=== PATIENT | female | born 1995 | race Caucasian/White ===

== ENCOUNTER 2016-08-05 10:18 | Emergency (ER) | payer OTHER ==
[2016-08-05 11:43] VITALS: BP 119/70
[2016-08-05] MEDS ORDERED: Ketorolac INJ* 30 MG/ML 1 ML VIAL IV PUSH ONE (12:00)
[2016-08-05] MEDS ORDERED: diPHENhydraMINE IV* 50 MG/ML 1 ml VIAL (BENADRYL) SLOW PUSH ONE (12:00)
[2016-08-05] MEDS ORDERED: Ondansetron INJ* 2 MG/ML VIAL IV ONE (12:00)
[2016-08-05] MEDS ORDERED: NS 0.9% 1000 ML* 1,000 ML BOLUS ONE ×2 (12:03→13:06)
--- NOTE | 2016-08-05 12:12 | UC ---
HPI Febrile Illness - HPI Summary HPI Summary: Cough and tickle in throat starting 2 days ago with chills and fever. Yesterday developed nausea and today vomiting without ability to keep anything down. Reports no BMs in 2-3 days and rare urination because "I'm not really eating or drinking anything." Needs note for school. - History of Current Complaint Chief Complaint: UCGeneralIllness Time Seen by Provider: 08/05/16 11:45 Hx Obtained From: Patient Onset/Duration: Started Days Ago Timing: Constant Initial Severity: Moderate Current Severity: Moderate Aggravating Factors: Nothing Alleviating Factors: OTC Medicine Associated Signs and Symptoms: Chills, Cough, Nausea, Vomiting - Allergy/Home Medications Allergies/Adverse Reactions: Allergies Allergy/AdvReac Type Severity Reaction Status Date / Time No Known Allergies Allergy Verified 05/16/16 16:44 PMH/Surg Hx/FS Hx/Imm Hx Previously Healthy: Yes Endocrine/Hematology History: Denies: Hx Diabetes, Hx Thyroid Disease Cardiovascular History: Denies: Hx Hypertension Respiratory History: Denies: Hx Asthma, Hx Chronic Obstructive Pulmonary Disease (COPD) GI History: Denies: Hx Ulcer Psychiatric History: Reports: Hx Anxiety - years hx , no treatment - Cancer History Hx Radiation Therapy: No Hx Palliative Cancer Treatment: No - Surgical History Surgery Procedure, Year, and Place: LASER SURGERY FOR REMOVAL OF [place] Infectious Disease History: No Infectious Disease History: Denies: Hx Hepatitis, Hx Human Immunodeficiency Virus (HIV), Traveled Outside the [place] in Last 30 Days - Family History Known Family History: Positive: Hypertension - Social History Occupation: Student Lives: Alone Alcohol Use: None Substance Use Type: Reports: None Smoking Status (MU): Never Smoked Tobacco Review of Systems Constitutional: Fever, Chills Skin: Negative Eyes: Negative ENT: Sore Throat Respiratory: Cough Cardiovascular: Negative Gastrointestinal: Abdominal Pain, Vomiting Genitourinary: Negative Motor: Negative Neurovascular: Negative Musculoskeletal: Negative Neurological: Negative Psychological: Negative All Other Systems Reviewed And Are Negative: Yes Physical Exam Triage Information Reviewed: Yes Appearance: Well-Nourished, Pain Distress - mild, lying in bed Vital Signs: Initial Vital Signs Temp 101.5 F 08/05/16 11:39 Pulse 124 08/05/16 11:39 Resp 18 08/05/16 11:39 BP 119/70 08/05/16 11:39 Pulse Ox 99 08/05/16 11:39 Vital Signs Reviewed: Yes Eye Exam: Normal Eyes: Positive: Conjunctiva Clear ENT: Positive: Hearing grossly normal, Pharyngeal erythema - slight, TMs normal , Other: - mild dryness in mucus membranes. Negative: Nasal congestion, Tonsillar swelling, Tonsillar exudate Dental Exam: Normal Neck exam: Normal Neck: Positive: Supple, Nontender, No Lymphadenopathy Respiratory Exam: Normal Respiratory: Positive: Chest non-tender, Lungs clear, Normal breath sounds, No respiratory distress, No accessory muscle use Cardiovascular: Positive: No Murmur, Tachycardia Abdomen Description: Positive: No Organomegaly, Soft, Other: - obdurator and psoas signs both negative. Negative: CVA Tenderness (R), CVA Tenderness (L), Distended, Guarding Musculoskeletal Exam: Normal Neurological Exam: Normal Psychological Exam: Normal Skin Exam: Normal - WWP Re-Evaluation - Re-Evaluation Second Eval Re-Evaluation Time: 13:35 Change: Improved - feeling a little better, still doesn't feel like she could keep down fluids. Comment: Pt is feeling tired, feels ok to go home after 2nd bag of IV fluids Course/Dx - Course Course Of Treatment: flu was positive for flu A. Discussed tamiflu with pt, did not recommend rx because pt is almost out of effective window, pt is young and healthy, and GI side effects would likely exacerbate current symptoms. Pt agrees and understands she should get seen again if fever persists longer than 5 days or has trouble breathing. - Diagnoses Clinic Provider Diagnoses: Influenza Discharge - Discharge Plan Condition: Stable Disposition: HOME Prescriptions: Ondansetron TAB* [Zofran Tab*] 4 mg PO Q6H PRN #10 tab PRN Reason: Vomiting Patient Education Materials: Influenza (ED) Forms: *School Release Referrals: No Primary Care Phys,NOPCP [Primary Care Provider] - Additional Instructions: You can treat your fever as needed for comfort; acetaminophen (tylenol) may be better if you continue to have stomach upset. There is nothing inherently dangerous about running a fever, so do not worry if it takes your temperature another few days to fully normalize. If you have fevers over 100.5 after 5 days , please return here for a recheck. Come back at any time if you have difficulty breathing or uncontrollable vomiting.
== END 2016-08-05 14:01 | disposition home or self-care (01) ==
LOC: UCEAST 10:18
DX: J11.1 Influenza due to unidentified influenza virus with other respiratory manifestations (principal); R50.9 Fever, unspecified
CPT/HCPCS: 81002; 87086; 87502; 96361; 96365; 96375; 99212; G0463; J1200; J1885; J2405

== ENCOUNTER 2016-11-14 14:21 | Emergency (ER) | payer OTHER ==
[2016-11-14 14:41] VITALS: BP 116/52
--- NOTE | 2016-11-14 15:03 | UC ---
Throat Pain/Nasal Declan HPI - HPI Summary HPI Summary: Seen here 11/11/[address] with multiple complains (n/v/dehydration/urinary frequency). Has been taking abx for UTI, now ST is much worse and is still feeling quite ill. - History of Current Complaint Chief Complaint: UCGeneralIllness Stated Complaint: SORE THROAT Time Seen by Provider: 11/14/16 14:49 Hx Obtained From: Patient Hx Last Menstrual Period: 11/07/16 ?: No Onset/Duration: Gradual Onset, Lasting Days Severity: Moderate Cough: None - Allergies/Home Medications Allergies/Adverse Reactions: Allergies Allergy/AdvReac Type Severity Reaction Status Date / Time No Known Allergies Allergy Verified 11/11/16 13:55 PMH/Surg Hx/FS Hx/Imm Hx Endocrine History Of: Denies: Diabetes, Thyroid Disease Cardiovascular History Of: Denies: Cardiac Disorders, Hypertension Respiratory History Of: Denies: COPD, Asthma GI/ History Of: Denies: Ulcer Psychological History Of: Reports: Anxiety - years hx , no treatment - Surgical History Surgical History: Yes Surgery Procedure, Year, and Place: LASER SURGERY FOR REMOVAL OF [place] - Family History Known Family History: Positive: None, Hypertension - Social History Lives: Alone Alcohol Use: None Substance Use Type: None Smoking Status (MU): Never Smoked Tobacco - Immunization History Most Recent Tetanus Shot: 2014 Review of Systems Constitutional: Fever, Fatigue Skin: Negative Eyes: Negative ENT: Sore Throat Respiratory: Negative Cardiovascular: Negative Gastrointestinal: Vomiting Genitourinary: Negative Motor: Negative Neurovascular: Negative Musculoskeletal: Negative Neurological: Negative Psychological: Negative All Other Systems Reviewed And Are Negative: Yes Physical Exam Triage Information Reviewed: Yes Appearance: Well-Appearing, Well-Nourished Vital Signs: Initial Vital Signs Temp 98.5 F 11/14/16 14:34 Pulse 77 11/14/16 14:34 Resp 16 11/14/16 14:34 BP 116/52 11/14/16 14:34 Pulse Ox 100 11/14/16 14:34 Vital Signs Reviewed: Yes Eye Exam: Normal Eyes: Positive: Conjunctiva Clear ENT: Positive: Pharyngeal erythema, TMs normal, Tonsillar swelling, Tonsillar exudate - R>L Dental Exam: Normal Neck: Positive: Enlarged Nodes @ - cervical Respiratory Exam: Normal Respiratory: Positive: Chest non-tender, Lungs clear, Normal breath sounds, No respiratory distress, No accessory muscle use Cardiovascular Exam: Normal Cardiovascular: Positive: RRR, No Murmur Musculoskeletal Exam: Normal Neurological Exam: Normal Psychological Exam: Normal Skin Exam: Normal Throat Pain/Nasal Course/Dx - Differential Dx/Diagnosis Provider Diagnoses: tonsillitis, suspect mononucleosis Discharge - Discharge Plan Condition: Stable Disposition: HOME Patient Education Materials: Tonsillitis (ED), Mononucleosis (ED) Forms: *Work Release Referrals: No Primary Care Phys,NOPCP [Primary Care Provider] - Additional Instructions: Rapid strep negative. Your original bloodwork did not show acute mononucleosis, but as we discussed it is too early for accurate negative results. If you still have significant symptoms in another week or so, please see your primary care provider or return here for a second round of bloodwork. You can stop the cephalexin (your urine culture did not show any infection).
== END 2016-11-14 15:29 | disposition home or self-care (01) ==
LOC: UCEAST 14:21
DX: J03.90 Acute tonsillitis, unspecified (principal); F41.9 Anxiety disorder, unspecified
CPT/HCPCS: 99211; G0463

== ENCOUNTER 2017-08-10 18:49 | Emergency (ER) | payer OTHER ==
[2017-08-10] MEDS ORDERED: Ondansetron INJ* 2 MG/ML VIAL IV ONE (19:23)
[2017-08-10] MEDS ORDERED: NS 0.9% 1000 ML* 1,000 ML IV ONE (19:23)
[2017-08-10 19:41] LABS: ABS Basophils 0 10^3/ul (0-0.2); ABS Eosinophils 0.1 10^3/ul (0-0.6); ABS Lymphocytes 1.9 10^3/ul (1.0-4.8); ABS Monocytes 0.6 10^3/ul (0-0.8); ABS Neutrophils 2.5 10^3/ul (1.5-7.7); ABS Nucleated RBC 0 10^3/ul; Eosinophil % 1.7 % (0-6); Hematocrit 41 % (35-47); Hemoglobin 14.1 g/dl (12.0-16.0); Lymphocyte % 36.9 % (25-47); Mean Corpuscular HGB Conc 35 g/dl (31-36); Mean Corpuscular Hemoglobin 31 pg (27-31); Mean Corpuscular Volume 89 fL (80-97); Mean Platelet Volume 9 um3 (7.4-10.4); Nucleated Red Blood Cells % 0.1; Platelet Count 196 10^3/ul (150-450); Red Cell Distribution Width 13 % (10.5-15); White Blood Count 5.1 10^3/ul (3.5-10.8)
[2017-08-10 19:53] LABS: EGFR Non-African American 64.7 (>60)
[2017-08-10] MEDS ORDERED: Pantoprazole IV* 40 MG IV ONE (20:02)
[2017-08-10 21:21] LABS: Urine Appearance Clear; Urine Blood 1+ (Negative); Urine Color Straw; Urine Ketones Negative (Negative); Urine Protein Negative (Negative); Urine Specific Gravity 1.006 (1.010-1.030); Urine Urobilinogen Negative (Negative)
[2017-08-10 21:30] VITALS: BP 111/55
--- NOTE | 2017-08-10 21:38 | ED ---
Israel Jackson Julia, scribed for Sohan Granger MD on 08/10/17 at 1924 . Abdominal Pain/Female - HPI Summary HPI Summary: This patient is a 21 year old F presenting to [facility] accompanied by her father with a chief complaint of L flank pain for past 24 hours. Patient reports nausea , vomiting (x3) this week, and burning epigastrium pain and indigestion for past year. Patient denies pain with urination, fever, chills, bowel symptoms, and hematemesis. The patient rates the pain 5/10 in severity. She reports rare and minimal use of ASA. She states previous stool testing was negative for blood. She has a GI appointment in September 2017. - History of Current Complaint Chief Complaint: EDAbdPain Stated Complaint: ABD PAIN/BACK PAIN Hx Obtained From: Patient Hx Last Menstrual Period: 11/07/16 Onset/Duration: Lasting Hours, Still Present, Other - chronic nausea and indigestoin Timing: Constant Pain Intensity: 5 Pain Scale Used: 0-10 Numeric Location: Epigastric, Flank - L and low back Associated Signs and Symptoms: Positive: Back Pain, Decreased Appetite, Nausea, Vomiting Allergies/Adverse Reactions: Allergies Allergy/AdvReac Type Severity Reaction Status Date / Time No Known Allergies Allergy Verified 08/10/17 19:11 PMH/Surg Hx/FS Hx/Imm Hx Endocrine/Hematology History: Denies: Hx Diabetes, Hx Thyroid Disease Cardiovascular History: Denies: Hx Hypertension Respiratory History: Denies: Hx Asthma, Hx Chronic Obstructive Pulmonary Disease (COPD) GI History: Denies: Hx Ulcer Psychiatric History: Reports: Hx Anxiety - years hx , no treatment - Cancer History Hx Radiation Therapy: No Hx Palliative Cancer Treatment: No - Surgical History Surgery Procedure, Year, and Place: LASER SURGERY FOR REMOVAL OF [place] Infectious Disease History: No Infectious Disease History: Denies: Hx Clostridium Difficile, Hx Hepatitis, Hx Human Immunodeficiency Virus (HIV), Hx of Known/Suspected MRSA, Hx Shingles, Hx Tuberculosis, Hx Known/ Suspected VRE, Hx Known/Suspected VRSA, History Other Infectious Disease, Traveled Outside the [place] in Last 30 Days - Family History Known Family History: Positive: Hypertension - Social History Alcohol Use: None Substance Use Type: Reports: None Smoking Status (MU): Never Smoked Tobacco Review of Systems Constitutional: Negative Negative: Fever, Chills Eyes: Negative Positive: Photophobia ENT: Negative Cardiovascular: Negative Respiratory: Negative Gastrointestinal: Negative - bowel symptoms or hematemesis Positive: Abdominal Pain, Vomiting, Nausea Positive: no symptoms reported Musculoskeletal: Negative Skin: Negative Neurological: Negative Psychological: Normal All Other Systems Reviewed And Are Negative: Yes Physical Exam - Summary Physical Exam Summary: Appearance: Well-appearing, Well-nourished Skin: Warm, Dry, No rash Eyes: Normal, PERRL, EOMI, sclera anicteric ENT: Normal Neck: Supple, nontender Respiratory: Clear to auscultation Cardiovascular: S1, S2, no murmur, no rub, no gallop Abdomen: Soft, mid epigastric tenderness, no organomegaly Bowel sounds: Present Musculoskeletal: Normal, Strength/ROM Intact, no edema, pulses symmetrical Neurological: Normal, A&Ox3, cranial nerves II-XII WNL, follows commands, gait not tested, sensation intact to pin and light touch Psychiatric: affect normal, behavior appropriate, dressed appropriately, judgment intact Triage Information Reviewed: Yes Vital Signs On Initial Exam: Initial Vitals Temp Pulse Resp BP Pulse Ox 98.7 F 89 16 115/59 98 08/10/17 19:08 08/10/17 19:08 08/10/17 19:08 08/10/17 19:08 08/10/17 19:08 Vital Signs Reviewed: Yes Diagnostics - Vital Signs Vital Signs Temp Pulse Resp BP Pulse Ox 08/10/17 19:08 98.7 F 89 16 115/59 98 - Laboratory Lab Results: Lab Results 08/10/17 08/10/17 08/10/17 Range/Units 19:27 19:27 21:09 WBC 5.1 (3.5-10.8) 10^3/ul RBC 4.60 (4.0-5.4) 10^6/ul Hgb 14.1 (12.0-16.0) g/dl Hct 41 (35-47) % MCV 89 (80-97) fL MCH 31 (27-31) pg MCHC 35 (31-36) g/dl RDW 13 (10.5-15) % Plt Count 196 (150-450) 10^3/ul MPV 9 (7.4-10.4) um3 Neut % (Auto) 49.3 (38-83) % Lymph % (Auto) 36.9 (25-47) % [place] % (Auto) 11.5 H (1-9) % Eos % (Auto) 1.7 (0-6) % Baso % (Auto) 0.6 (0-2) % Absolute Neuts (auto) 2.5 (1.5-7.7) 10^3/ul Absolute Lymphs (auto) 1.9 (1.0-4.8) 10^3/ul Absolute Monos (auto) 0.6 (0-0.8) 10^3/ul Absolute Eos (auto) 0.1 (0-0.6) 10^3/ul Absolute Basos (auto) 0 (0-0.2) 10^3/ul Absolute Nucleated RBC 0 10^3/ul Nucleated RBC % 0.1 Sodium 140 (133-145) mmol/L Potassium 4.3 (3.5-5.0) mmol/L Chloride 106 (101-111) mmol/L Carbon Dioxide 27 (22-32) mmol/L Anion Gap 7 (2-11) mmol/L BUN 11 (6-24) mg/dL Creatinine 1.08 H (0.51-0.95) mg/dL Est GFR ( Amer) 83.2 (>60) Est GFR (Non-Af Amer) 64.7 (>60) BUN/Creatinine Ratio 10.2 (8-20) Glucose 91 (70-100) mg/dL Calcium 10.0 (8.6-10.3) mg/dL Total Bilirubin 0.50 (0.2-1.0) mg/dL AST 13 (13-39) U/L ALT 9 (7-52) U/L Alkaline Phosphatase 40 (34-104) U/L Total Protein 7.6 (6.4-8.9) g/dL Albumin 4.8 (3.2-5.2) g/dL Globulin 2.8 (2-4) g/dL Albumin/Globulin Ratio 1.7 (1-3) Lipase 33 (11.0-82.0) U/L Urine Color Straw Urine Appearance Clear Urine pH 7.0 (5-9) Ur Specific Stella 1.006 L (1.010-1.030) Urine Protein Negative (Negative) Urine Ketones Negative (Negative) Urine Blood 1+ H (Negative) Urine Nitrate Negative (Negative) Urine Bilirubin Negative (Negative) Urine Urobilinogen Negative (Negative) Ur Leukocyte Esterase Negative (Negative) Urine WBC (Auto) Trace(0-5/hpf) (Absent) Urine RBC (Auto) Absent (Absent) Ur Squamous Epith Cells Present H (Absent) Urine Bacteria Absent (Absent) Urine Glucose Negative (Negative) Result Diagrams: 08/10/17 19:27 08/10/17 19:27 Lab Statement: Any lab studies that have been ordered have been reviewed, and results considered in the medical decision making process. Abdominal Pain Fem Course/Dx - Course Course Of Treatment: Pt presents with nausea, vomiting (x3) this week, and burning epigastrium pain and indigestion for past year. Patient denies pain with urination, fever, chills, bowel symptoms, and hematemesis. Lab results are unremarkable. Pt is given Zofran, Protonix, and Iv fluids. - Diagnoses Provider Diagnoses: Gastritis Discharge - Discharge Plan Condition: Good Disposition: HOME Prescriptions: Ondansetron TAB* [Zofran 4 MG Tab*] 4 mg PO Q6H PRN 6 Days #25 tab MDD 4 PRN Reason: Nausea Pantoprazole TAB (NF) [Protonix TAB (NF)] 40 mg PO DAILY #30 tab Patient Education Materials: Gastritis (ED) Referrals: Mohit Lancaster MD [Primary Care Provider] - The documentation as recorded by the Israel cedillo Julia accurately reflects the service I personally performed and the decisions made by Bárbara henderson Matthew, MD.
== END 2017-08-10 21:35 | disposition home or self-care (01) ==
LOC: ED 18:49
DX: K29.70 Gastritis, unspecified, without bleeding (principal)
CPT/HCPCS: 36415; 80053; 81003; 81015; 83690; 85025; 96374; 96375; 99283; J2405

== ENCOUNTER 2017-08-15 16:13 | Emergency (ER) | payer OTHER ==
[2017-08-15 18:11] LABS: ABS Basophils 0 10^3/ul (0-0.2); ABS Eosinophils 0 10^3/ul (0-0.6); ABS Lymphocytes 1.7 10^3/ul (1.0-4.8); ABS Monocytes 0.4 10^3/ul (0-0.8); ABS Neutrophils 3.4 10^3/ul (1.5-7.7); ABS Nucleated RBC 0 10^3/ul; Eosinophil % 0.8 % (0-6); Hematocrit 41 % (35-47); Lymphocyte % 29.9 % (25-47); Mean Corpuscular HGB Conc 34 g/dl (31-36); Mean Corpuscular Hemoglobin 31 pg (27-31); Mean Corpuscular Volume 89 fL (80-97); Mean Platelet Volume 9 um3 (7.4-10.4); Nucleated Red Blood Cells % 0.1; Platelet Count 195 10^3/ul (150-450); Red Blood Count 4.57 10^6/ul (4.0-5.4); Red Cell Distribution Width 13 % (10.5-15); White Blood Count 5.5 10^3/ul (3.5-10.8)
[2017-08-15 18:27] LABS: EGFR Non-African American 76.9 (>60)
[2017-08-15] MEDS ORDERED: Sucralfate TAB* 1 GM PO ONE ×2 (20:43→21:55)
[2017-08-15] MEDS ORDERED: Sucralfate TAB* 1 GM ONE (21:58)
[2017-08-15 22:09] VITALS: BP 116/50
--- NOTE | 2017-08-15 22:21 | ED ---
Alok Jackson Jennifer, scribed for Lyle Gonzalez MD on 08/15/17 at 2051 . Abdominal Pain/Female - HPI Summary HPI Summary: The patient is a 21 year old female who presents to the ED with abdominal pain that began six days ago. She describes it as a burning pain that radiates to her back. She additionally complains of nausea and vomiting that began one month ago, as well as heart burn. Her PCP referred her to a GI specialist, but they cant see her until September 01, so she came to the ED for her pain. - History of Current Complaint Chief Complaint: EDAbdPain Stated Complaint: ABD AND BACK PAIN Time Seen by Provider: 08/15/17 20:15 Hx Obtained From: Patient Hx Last Menstrual Period: 11/07/16 Onset/Duration: Lasting Days - six days, Still Present, Worse Since Timing: Constant Severity Initially: Moderate Severity Currently: Moderate Pain Intensity: 7 Pain Scale Used: 0-10 Numeric Location: Discrete At: LUQ, Epigastric Radiates: Yes Radiates to: Back Character: Burning Aggravating Factor(s): Nothing Alleviating Factor(s): Nothing Associated Signs and Symptoms: Positive: Other: - Nausea, vomiting, heart burn Allergies/Adverse Reactions: Allergies Allergy/AdvReac Type Severity Reaction Status Date / Time No Known Allergies Allergy Verified 08/10/17 19:11 PMH/Surg Hx/FS Hx/Imm Hx Endocrine/Hematology History: Denies: Hx Diabetes, Hx Thyroid Disease Cardiovascular History: Denies: Hx Hypertension Respiratory History: Denies: Hx Asthma, Hx Chronic Obstructive Pulmonary Disease (COPD) GI History: Denies: Hx Ulcer Psychiatric History: Reports: Hx Anxiety - years hx , no treatment - Cancer History Hx Radiation Therapy: No Hx Palliative Cancer Treatment: No - Surgical History Surgery Procedure, Year, and Place: LASER SURGERY FOR REMOVAL OF [place] Infectious Disease History: No Infectious Disease History: Denies: Hx Clostridium Difficile, Hx Hepatitis, Hx Human Immunodeficiency Virus (HIV), Hx of Known/Suspected MRSA, Hx Shingles, Hx Tuberculosis, Hx Known/ Suspected VRE, Hx Known/Suspected VRSA, History Other Infectious Disease, Traveled Outside the [place] in Last 30 Days - Family History Known Family History: Positive: Hypertension - Social History Alcohol Use: None Substance Use Type: Reports: None Smoking Status (MU): Never Smoked Tobacco Review of Systems Negative: Fever Positive: Abdominal Pain, Vomiting, Nausea, Other - Heart burn All Other Systems Reviewed And Are Negative: Yes Physical Exam - Summary Physical Exam Summary: Appearance: The patient is well-nourished in no acute distress and in no acute pain. Skin: The skin is warm and dry and skin color reflects adequate perfusion. HEENT: ~The head is normocephalic and atraumatic. The pupils are equal and reactive. The conjunctivae are clear and without drainage. ~Nares are patent and without drainage. ~Mouth reveals moist mucous membranes and the throat is without erythema and exudate. ~The external ears are intact. The ear canals are patent and without drainage. The tympanic membranes are intact. Neck: the neck is supple with full range of motion and non-tender. There are no carotid bruits. ~There is no neck vein distension. Respiratory: Chest is non-tender. ~Lungs are clear to auscultation and breath sounds are symmetrical and equal. Cardiovascular: Heart is regular rate and rhythm. ~There is no murmur or rub auscultated. ~~There is no peripheral edema and pulses are symmetrical and equal. Abdomen: The abdomen is soft and tender in the epigastric and LUQ areas. ~There are normal bowel sounds heard in all four quadrants and there is no organomegaly palpated. Musculoskeletal: There is no back tenderness noted. ~Extremities are non-tender with full range of motion. ~There is good capillary refill. ~There is no peripheral edema or calf tenderness elicited. Neurological: Patient is alert and oriented to person, place and time. ~The patient has symmetrical motor strength in all four extremities. ~Cranial nerves are grossly intact. Deep tendon reflexes are symmetrical and equal in all four extremities. Psychiatric: The patient has an appropriate affect and does not exhibit any anxiety or depression. Triage Information Reviewed: Yes Vital Signs On Initial Exam: Initial Vitals Temp Pulse Resp BP Pulse Ox 97.8 F 85 16 132/86 100 08/15/17 16:16 08/15/17 16:16 08/15/17 16:16 08/15/17 16:16 08/15/17 16:16 Vital Signs Reviewed: Yes Diagnostics - Vital Signs Vital Signs Temp Pulse Resp BP Pulse Ox 08/15/17 19:55 98.2 F 62 121/56 100 08/15/17 18:22 98.5 F 50 16 118/54 97 08/15/17 16:16 97.8 F 85 16 132/86 100 - Laboratory Lab Results: Lab Results 08/15/17 08/15/17 Range/Units 18:00 18:00 WBC 5.5 (3.5-10.8) 10^3/ul RBC 4.57 (4.0-5.4) 10^6/ul Hgb 14.0 (12.0-16.0) g/dl Hct 41 (35-47) % MCV 89 (80-97) fL MCH 31 (27-31) pg MCHC 34 (31-36) g/dl RDW 13 (10.5-15) % Plt Count 195 (150-450) 10^3/ul MPV 9 (7.4-10.4) um3 Neut % (Auto) 62.2 (38-83) % Lymph % (Auto) 29.9 (25-47) % [place] % (Auto) 6.7 (1-9) % Eos % (Auto) 0.8 (0-6) % Baso % (Auto) 0.4 (0-2) % Absolute Neuts (auto) 3.4 (1.5-7.7) 10^3/ul Absolute Lymphs (auto) 1.7 (1.0-4.8) 10^3/ul Absolute Monos (auto) 0.4 (0-0.8) 10^3/ul Absolute Eos (auto) 0 (0-0.6) 10^3/ul Absolute Basos (auto) 0 (0-0.2) 10^3/ul Absolute Nucleated RBC 0 10^3/ul Nucleated RBC % 0.1 Sodium 136 (133-145) mmol/L Potassium 4.1 (3.5-5.0) mmol/L Chloride 105 (101-111) mmol/L Carbon Dioxide 25 (22-32) mmol/L Anion Gap 6 (2-11) mmol/L BUN 11 (6-24) mg/dL Creatinine 0.93 (0.51-0.95) mg/dL Est GFR ( Amer) 98.8 (>60) Est GFR (Non-Af Amer) 76.9 (>60) BUN/Creatinine Ratio 11.8 (8-20) Glucose 77 (70-100) mg/dL Calcium 10.4 H (8.6-10.3) mg/dL Total Bilirubin 0.80 (0.2-1.0) mg/dL AST 28 (13-39) U/L ALT 35 (7-52) U/L Alkaline Phosphatase 48 (34-104) U/L C-Reactive Protein 1.19 (< 5.00) mg/L Total Protein 7.8 (6.4-8.9) g/dL Albumin 4.9 (3.2-5.2) g/dL Globulin 2.9 (2-4) g/dL Albumin/Globulin Ratio 1.7 (1-3) Result Diagrams: 08/15/17 18:00 08/15/17 18:00 Lab Statement: Any lab studies that have been ordered have been reviewed, and results considered in the medical decision making process. Abdominal Pain Fem Course/Dx - Course Course Of Treatment: Ms. Sunshine presented with the same epigastric pain for which she has been seen and treated and is referred for further W/U. Her labs were unremarkable and she did get some relief with sucralfate. I will add this to her regimen and encourage close GI F/U. - Diagnoses Provider Diagnoses: Epigastric pain Discharge - Discharge Plan Condition: Stable Disposition: HOME Prescriptions: Sucralfate TAB* [Carafate*] 1 gm PO QID #40 tab Patient Education Materials: Epigastric Pain (ED) Referrals: Mohit Lancaster MD [Primary Care Provider] - Additional Instructions: Follow up with your GI doctor. Return to the emergency department for any new or worsening symptoms. The documentation as recorded by the Alok cedillo Jennifer accurately reflects the service I personally performed and the decisions made by , Lyle Gonzalez MD.
== END 2017-08-15 22:10 | disposition home or self-care (01) ==
LOC: ED 16:13
DX: R10.13 Epigastric pain (principal); R10.12 Left upper quadrant pain; R11.2 Nausea with vomiting, unspecified; F41.9 Anxiety disorder, unspecified
CPT/HCPCS: 36415; 80053; 85025; 86140; 99283; A9270-GY

== ENCOUNTER 2017-10-13 10:55 | Emergency (ER) | payer OTHER ==
[2017-10-13 11:02] VITALS: BP 102/60
--- NOTE | 2017-10-13 11:05 | UC ---
FLU HPI - HPI Summary HPI Summary: 22 y/o female presents to the urgent care c/o sore throat, body aches, low grade fever, BENNETT and mild nasal congestion for the past 3 days. Pt reports she has been exposed to strep. Pain w/ swallowing is 5/10 associated w. B/L ear pressure. Pt has taken Advil PO to alleviate symptoms. Pt is UTD w/ all vaccines for her age. Pt denies cough, SOB, chest pain, abdominal pain, N/V/D - History of Current Complaint Chief Complaint: UCGeneralIllness Stated Complaint: SORE THROAT,BODYACHES Time Seen by Provider: 10/13/17 11:04 Hx Obtained From: Patient Hx Last Menstrual Period: 09/16/17 ?: No Onset/Duration: Gradual Onset, Lasting Days - 3 days, Still Present, Worse Since - yesterday Severity Currently: Mild Severity Initially: Moderate Pain Intensity: 5 Pain Scale Used: 0-10 Numeric Associated Signs & Symptoms: Positive: Fever - low grade, Myalgia, Sore Throat, Nasal Congestion, Headache - Risk Factors Influenza Risk Factors: Negative - Allergy/Home Medications Allergies/Adverse Reactions: Allergies Allergy/AdvReac Type Severity Reaction Status Date / Time No Known Allergies Allergy Verified 10/13/17 11:02 PMH/Surg Hx/FS Hx/Imm Hx Previously Healthy: Yes Other GI/ History: gastroperesis - Surgical History Surgical History: Yes Surgery Procedure, Year, and Place: LASER SURGERY FOR REMOVAL OF BIRTHMARK - Family History Known Family History: Positive: None, Hypertension - Social History Occupation: Student Lives: With Family Alcohol Use: None Substance Use Type: None Smoking Status (MU): Never Smoked Tobacco - Immunization History Most Recent Tetanus Shot: 2015 Vaccination Up to Date: Yes Review of Systems Constitutional: Fever, Chills Skin: Negative Eyes: Negative ENT: Sore Throat, Ear Ache - B/L ear pressure, Nasal Discharge Respiratory: Negative Cardiovascular: Negative Gastrointestinal: Negative Genitourinary: Negative Motor: Negative Neurovascular: Negative Musculoskeletal: Negative Neurological: Headache Psychological: Negative Is Patient Immunocompromised?: No All Other Systems Reviewed And Are Negative: Yes Physical Exam - Summary Physical Exam Summary: VITAL SIGNS: Reviewed. GENERAL: Patient is a well developed and nourished female who is sitting comfortable in the examining table. Patient is not in any acute respiratory distress. HEAD AND FACE: No signs of trauma. No ecchymosis, hematomas or skull depressions. No sinus tenderness. EYES: PERRLA, EOMI x 2, No injected conjunctiva, no nystagmus. No photophobia. EARS: Hearing grossly intact. Ear canals and tympanic membranes are within normal limits. MOUTH: Positive pharynx with erythema, exudates, palatal petechiae. B/L tonsillar enlargement with exudate. Uvula in midline. NECK: Supple, trachea is midline, Positive anterior cervical lymphadenopathy, no JVD, no carotid bruit, no c-spine tenderness, neck with full ROM. No meningeal signs, no Kernig's or brudzinskis signs. CHEST: Symmetric, no tenderness at palpation LUNGS: Clear to auscultation bilaterally. No wheezing or crackles. CVS: Regular rate and rhythm, S1 and S2 present, no murmurs or gallops appreciated. ABDOMEN: Soft, non-tender. No signs of distention. No rebound no guarding, and no masses palpated. Bowel sounds are normal. EXTREMITIES: FROM in all major joints, no edema, no cyanosis or clubbing. NEURO: Alert and oriented x 3. No acute neurological deficits. Speech is normal and follows commands. SKIN: Dry and warm Triage Information Reviewed: Yes Vital Signs: Initial Vital Signs Temp 97.5 F 10/13/17 10:59 Pulse 79 10/13/17 10:59 Resp 16 10/13/17 10:59 BP 102/60 10/13/17 10:59 Pulse Ox 100 10/13/17 10:59 Flu Course/Dx - Course Course Of Treatment: 22 y/o female presents to the urgent care c/o sore throat, body aches, low grade fever, BENNETT and mild nasal congestion for the past 3 days. Pt reports she has been exposed to strep. Pain w/ swallowing is 5/10 associated w. B/L ear pressure. Pt has taken Advil PO to alleviate symptoms. Pt is UTD w/ all vaccines for her age. Pt denies cough, SOB, chest pain, abdominal pain, N/V/ D. Hx obtained. Pt w/ pharyngitis on examination. Rapid strep ordered, result: negative. Influenza A&B: negative. However Strep swab sent for culture to the lab to r/o strep. Pt will be nofied of the result. Pt Rx ibuprofen PO to alleviates symptoms of pain and swelling. Advised on hand washing to avoid spreading. Pt advised to rest, eat well and avoid strenuous exercise. If symptoms do not improve or worsen advised to return to the urgent care or f/u with her PCP for further evaluation and treatment. Pt understood and agreed - Differential Dx/Diagnosis Differential Diagnosis/HQI/PQRI: Bronchitis, Influenza, Upper Respiratory Infection, Other - pharyngitis, tonsillitis, mononucleosis Provider Diagnoses: 1- Acute pharyngitis Discharge - Sign-Out/Discharge Documenting (check all that apply): Discharge - Discharge Plan Condition: Stable Disposition: HOME Prescriptions: Ibuprofen TAB* [Motrin TAB* 600 MG] 600 mg PO Q6H PRN #20 tab PRN Reason: Sore Throat Patient Education Materials: Pharyngitis (ED) Forms: *School Release Referrals: Mohit Lancaster MD [Primary Care Provider] - Additional Instructions: 1- Strep test and influenza A&B are negative. Throat swab was sent for culture to r/o Strep pharyngitis. You will be notified of result. 2-Please take ibuprofen PO q6-8hrs prn as instructed after meals to alleviate pain and swelling. Increase fluid intake, eat well, rest and avoid strenuous exercise 3-If symptoms do not improve or worsen please return to the urgent care or f/u with your PCP for further evaluation and treatment. - Billing Disposition and Condition Condition: STABLE Disposition: HOME
== END 2017-10-13 11:49 | disposition home or self-care (01) ==
LOC: UCEAST 10:55
DX: J02.9 Acute pharyngitis, unspecified (principal); M79.1 Myalgia; R50.9 Fever, unspecified; R51 Headache; R09.81 Nasal congestion; H93.8X3 Other specified disorders of ear, bilateral; K31.84 Gastroparesis
CPT/HCPCS: 87070; 87502; 87651; 99212; G0463

== ENCOUNTER 2018-08-28 14:13 | Emergency (ER) | payer OTHER ==
--- OUTSIDE RECORDS SUMMARY | 2018-08-28 14:21 | XMS REPORT | Continuity of Care Document ---
:1995 Author Organization [facility] Address [address] [place], [place] [id number] Phone Care Team Providers Name Role Phone Екатерина Mack NP Unavailable Unavailable Allergies, Adverse Reactions, Alerts Substance Reaction Status No Known Allergies Active Medications Medication Instructions Dosage Effective Status Comments Dates (start - stop) Ortho-Cyclen (28) take 1 tablet by 1.00 tablet - Active 0.25 mg-35 mcg oral route every tablet day levonorgestrel 0.15 take 1 tablet by 1.00 tablet - No Longer mg-ethinyl estradiol oral route every Active 0.03 mg tablet day ZOFRAN ODT (unknown Not Available - No Longer strength) Active Problems Condition Effective Dates (start - Clinical Status Comments stop) Encntr screen for infections w sexl mode of transmiss Encounter for surveillance of contraceptive pills Encounter for test, result negative Encounter for oth general cnsl and - advice on contraception Human immunodeficiency virus [HIV] - counseling Urgency of urination Encounter for test, result negative Dysuria Encntr screen for infections w sexl mode of transmiss Encounter for oth general cnsl and advice on contraception Encounter for surveillance of contraceptive pills Hematuria, unspecified Body mass index (BMI) 20.0-20.9, adult Encounter for test, result negative Encntr for ob gyn exam (general) (routine) w/o abn findings Encounter for oth screening for malignant neoplasm of breast Human immunodeficiency virus [HIV] - counseling Encounter for test, result negative Encounter for prescription of emergency contraception Encounter for oth general cnsl and advice on contraception Encntr screen for infections w sexl mode of transmiss Unspecified dyspareunia Encntr screen for infections w sexl mode of transmiss Encounter for surveillance of contraceptive pills Postcoital and contact bleeding Encntr screen for dis of the bld/bld-form org/immun mechnsm Encntr screen for infections w sexl mode of transmiss Other fatigue Chlamydial infection, unspecified Encntr screen for infections w sexl mode of transmiss Urgency of urination Encounter for initial prescription of contraceptive pills Procedures Procedure Date CHYLMD DNA, AMP PROBE N.GONORRHOEAE, DNA, AMP PROB URINE TEST OFFICE/OUTPATIENT VISIT, EST BLOOD PRESSURE Contraceptive Poll Watcher.Svc. Other Poll Watcher.Svc. STI OTHER Medical Services Results Test Name Date and Time Measure Units Reference Range Abnormal Flag Status Comments Panel Description: High Sensitivity Urine Test Final High Sensitivity Urine 15:43:09 NegativeInternal Quality Final Test Control: Positive Panel Description: C trach DNA XXX Ql PCR Final Urine CT/GC Negative N Final Performed Combo - CT 00:00:00 by:
&emsp;&ensp;CDD ([id number])

Panel Description: Amplified GC - Urine Final Urine CT/GC Negative N Final : No

Performed Combo - GC 00:00:00 by:
&emsp;&ensp;CDD ([id number])

Advance Directives Directive Yes / No Effective Date File Name No information Encounters Encounter Practice Location Reason(s) Diagnoses Date Provider Providers Description For Visit Copied on Encounter OFFICE/OUTPA [facility] Encntr screen Raphaelj luis TIENT VISIT, [facility] [place] Control for infections w Екатерина. [address] (chief sexl mode of [address], [place] complaint) transmissEncount [place], [place], [place], [address] [place] [address]. [address] surveillance of tel:[phone] St, [place], contraceptive [address] [place], pillsEncounter [phone], for [place] test, result tel:[phone] negativeEncounte [phone] r for oth general cnsl and advice on contraception [facility] Sep-2 Alida Referring [facility] [place] [address]. [address] Provider: [place] [address], [place], [place], Al[place] J, [facility], [address] [id number], [place]. [address] tel:[phone], St, [place], [address] [place], [place], [address]. [id number], tel:[phone] [place] [phone] tel:[phone] [facility] Human May-0 Lias Referring [facility] [place] immunodeficiency [address] [place]. [address] Provider: [facility] virus [HIV] [address], [place] [facility] [place] [place], Lisa [facility], [address] [place] [address]. M, [address] urinationEncount tel:+[phone], [place], [place] [address] [place], [place], [place], [address]. [id number], negativeDysuriaE tel:[phone] [place] ncntr screen for [id number] tel:[phone] infections w [phone] sexl mode of transmissEncount er for oth general cnsl and advice on contraceptionEnc ounter for surveillance of contraceptive pillsHematuria, unspecified [facility] Body mass index Apr- [place]. [facility] [place] (BMI) 20.0-20.9, [address] adult[address]ounter [address], [place], [place], [address], [facility], 620 test, result [place]. [address] negativeEncntr , [place], for ob gyn exam [place], (general) [id number], (routine) w/o [place] abn tel:[phone] findingsEncounte [phone] r for oth screening for malignant neoplasm of breast [facility] Human Dec-0 Pieterm Referring [facility] [place] immunodeficiency 6- Yi. [address] Provider: [facility] virus [HIV] [address], [place] counselingEncoun [place], [place], [place] [facility], [address] [place] [address]. M, [address] test, tel:[phone], St, [place], [place] [address] [place], [place], [place], [address]. [id number], r for tel:[phone] [place] prescription of [id number] tel:[phone] emergency [phone] contraceptionEnc ounter for oth general cnsl and advice on contraceptionEnc ntr screen for infections w sexl mode of transmissUnspeci fied dyspareunia [facility] Encntr screen [facility] [place] for infections w Madelyn. [place] sexl mode of [address] [place] transmissEncount , [place], [facility], [address] [place], [address], [address] surveillance of [place]. St, [place], contraceptive tel:[phone] [place], pillsPostcoital [phone], and contact [place] bleeding tel:[phone] [facility] Encntr screen [place] [facility] [place] for dis of the [place]. [address] bld/bld-form [address], [place] org/immun [place], [place], [facility], [address] mechnsmEncntr [address]. [address] screen for tel:[phone] [facility], [place] [address] [place], sexl mode of [id number], transmissOther [place] fatigue tel:[phone] [facility] Chlamydial Aug-0 [place] [place] infection, Jeannie. [address] unspecified [address], [place], [place], [facility], [address] [address], [place]. [address] tel:+[phone] St, [place], [address] [place], [id number], [place] tel:[phone] [facility] Encntr screen Raphaelidis [facility] [place] for infections w Екатерина. [address] [place] sexl mode of [address], [place] transmissUrgency [place], [place], [place], [address] [address]. [address] urinationEncount tel:+[phone] St, [place], [place] [address] [place], prescription of [id number], contraceptive [place] pills tel:[phone] Family History Family Member Diagnosis Age At Onset Paternal grandmother Cancer, breast 70 Mother No history of Myocardial infarction before age 65 Father No history of Myocardial infarction before age 55 Father No history of Stroke before age 55 Maternal grandmother Cancer, breast 70 Mother No history of Stroke before age 65 1st degree relative No hx of cancer of breast, colon, endometrium or ovary Immunizations Vaccine Date Status Comments No information Payers Payer name Insurance type Covered democrat ID Authorization(s) [facility] [id number] Social History Type Description Quantity Date Captured Comments Alcohol Use Details Unknown Caffeine Use Details Unknown Tobacco Use Status Unknown Smoking Status Never smoker Sex Female Vital Signs Date / Height Weight BMI Pulse Blood Temperature Respiratory Body Head BMI Pulse Inhaled Time: Rate Pressure Rate Surface Circumference percentile Ox Ox Area mm[Hg] 3:49 PM Chief Complaint And Reason For Visit Most recent encounter only, dated '08/14/2018 15:00'. Control ( chief complaint) Reason For Referral Reason For Referral No information Plan Of Treatment Date Type Action Status No information History Of Present Illness Encounter Date Complaint History Of Present Illness No information Functional Status Date Functional Assessment No information Medications Administered Medication Instructions Dosage Effective Dates (start - stop) Status Comments No information Instructions Date Instruction Additional Information No information Assessments Type Assessment Date assessment Encntr screen for infections w sexl mode of transmiss assessment Encounter for surveillance of contraceptive pills assessment Encounter for test, result negative assessment Encounter for oth general cnsl and advice on contraception 2018 Goals Health Concern Goal Type Priority Status Date No information Medical Equipment Description Device [place] Device Identifier Effective Dates (start - stop ) Status No information Mental Status Date Cognitive Assessment Normal Orientation Health Concerns Observation Date No information Concern Status Date No information
[2018-08-28 14:50] VITALS: BP 117/67
[2018-08-28] MEDS ORDERED: cefTRIAXone VIAL(*) 250 MG VIAL IM ONE (15:16)
[2018-08-28] MEDS ORDERED: Azithromycin TAB* 250 MG PO ONE (15:17)
[2018-08-28] MEDS ORDERED: Lidocaine 1%* 5 ML VIAL ONE (15:24)
--- NOTE | 2018-08-28 16:27 | UC ---
Complaint Female HPI - HPI Summary HPI Summary: 22 year old female with PMH + for chlamydia, treated, presents for vaginal discharge, pain with urination x 4 days. She denies urinary frequency, urgency, hematuria, abdominal pains, fever, chills. no sex activities since symptoms started, + new partner on last. - History Of Current Complaint Chief Complaint: UCGU Stated Complaint: PERSONAL Time Seen by Provider: 08/28/18 14:46 Hx Last Menstrual Period: 2 weeks ago Pain Intensity: 0 Pain Scale Used: 0-10 Numeric - Allergies/Home Medications Allergies/Adverse Reactions: Allergies Allergy/AdvReac Type Severity Reaction Status Date / Time No Known Allergies Allergy Verified 08/28/18 14:50 PMH/Surg Hx/FS Hx/Imm Hx - Surgical History Surgical History: Yes Surgery Procedure, Year, and Place: LASER SURGERY FOR REMOVAL OF BIRTHMARK - Family History Known Family History: Positive: None, Hypertension - Social History Alcohol Use: None Substance Use Type: None Smoking Status (MU): Never Smoked Tobacco - Immunization History Most Recent Tetanus Shot: 2014 Vaccination Up to Date: Yes Physical Exam Vital Signs: Initial Vital Signs Temp 98.7 F 08/28/18 14:42 Pulse 58 08/28/18 14:42 Resp 16 08/28/18 14:42 BP 117/67 08/28/18 14:42 Pulse Ox 100 08/28/18 14:42 Discharge - Discharge Plan Condition: Good Disposition: HOME Patient Education Materials: Azithromycin (By mouth), Ceftriaxone (By injection ), Sexually Transmitted Diseases (ED) Referrals: Mohit Lancaster MD [Primary Care Provider] - Additional Instructions: - Treated for Gonorrhea/ Chlamydia based on exam findings. Please follow up cultures within 1-2 days for final results. - Refrain from sexual activity until final results returned - Return to ER with increased pain, fever, chills. - Billing Disposition and Condition Condition: GOOD Disposition: Home
[2018-08-29 12:25] LABS: Neisseria gonorrhoeae (GC) RNA Negative (Negative)
== END 2018-08-28 15:35 | disposition home or self-care (01) ==
LOC: UCEAST 14:13
DX: R30.0 Dysuria (principal); N89.8 Other specified noninflammatory disorders of vagina
CPT/HCPCS: 81003; 84702; 87086; 87480; 87491; 87510; 87591; 96372; 99212; A9270-GY; G0463; J0696

== ENCOUNTER 2018-11-06 06:37 | Emergency (ER) | payer OTHER ==
[2018-11-06 07:36] LABS: Urine Appearance Cloudy; Urine Bacteria Absent (Absent); Urine Bilirubin Negative (Negative); Urine Blood 3+ (Negative); Urine Color Amber; Urine Glucose Negative (Negative); Urine Ketones Negative (Negative); Urine Nitrite Positive (Negative); Urine Protein 1+(30 mg/dL) (Negative); Urine Red Blood Cell 3+(>10/hpf) (Absent); Urine Specific Gravity 1.012 (1.010-1.030); Urine Squamous Epithelial Cell Present (Absent); Urine Urobilinogen Positive (Negative); Urine White Blood Cell 3+(>20/hpf) (Absent)
--- NOTE | 2018-11-06 07:39 | ED ---
GI/ HPI - HPI Summary HPI Summary: Pt is a 23 y/o female who presents to the ED c/o dysuria. Last night she began to have dysuria and urinary urgency. Pt describes the pain as burning and rates it a 6/10 in severity. She has a hx of UTI and states these symptoms are similar. Pt also c/o N/V and diaphoresis, but denies any fever or chills. LNMP 4 weeks ago, and pt is on a control pill. - History of Current Complaint Chief Complaint: EDUrogenitalProblems Time Seen by Provider: 11/06/18 07:20 Stated Complaint: "FEVER/VOMITING/POSS UTI" PER PT Hx Obtained From: Patient Hx Last Menstrual Period: 2 weeks ago Onset/Duration: Started Days Ago - 1, Still Present Timing: Constant Current Severity: Moderate Pain Intensity: 6 Pain Characteristics: Burning Associated Signs and Symptoms: Positive: Nausea, Vomiting, Diaphoresis, Dysuria , UTI Symptoms. Negative: Fever, Chills Additional Signs & Symptoms: Positive: Oral Contraceptives Compliant, Other: - hx UTI - Allergy/Home Medications Allergies/Adverse Reactions: Allergies Allergy/AdvReac Type Severity Reaction Status Date / Time No Known Allergies Allergy Verified 11/06/18 06:43 Home Medications: Home Medications Ondansetron ODT TAB* [Zofran 4 MG Odt TAB*] 4 mg PO Q6H PRN 11/06/18 [History Confirmed 11/06/18] PMH/Surg Hx/FS Hx/Imm Hx Endocrine/Hematology History: Denies: Hx Diabetes, Hx Thyroid Disease Cardiovascular History: Denies: Hx Hypertension Respiratory History: Denies: Hx Asthma, Hx Chronic Obstructive Pulmonary Disease (COPD) GI History: Denies: Hx Ulcer History: Reports: Other Problems/Disorders - UTI Psychiatric History: Reports: Hx Anxiety - years hx , no treatment - Cancer History Hx Radiation Therapy: No Hx Palliative Cancer Treatment: No - Surgical History Surgery Procedure, Year, and Place: LASER SURGERY FOR REMOVAL OF BIRTHMARK Infectious Disease History: No Infectious Disease History: Denies: Hx Clostridium Difficile, Hx Hepatitis, Hx Human Immunodeficiency Virus (HIV), Hx of Known/Suspected MRSA, Hx Shingles, Hx Tuberculosis, Hx Known/ Suspected VRE, Hx Known/Suspected VRSA, History Other Infectious Disease, Traveled Outside the [place] in Last 30 Days - Family History Known Family History: Positive: Hypertension - Social History Alcohol Use: Weekly Hx Substance Use: No Substance Use Type: Reports: None Hx Tobacco Use: No Smoking Status (MU): Never Smoked Tobacco Review of Systems Positive: Skin Diaphoresis. Negative: Fever, Chills Positive: Vomiting, Nausea Positive: dysuria, urgency All Other Systems Reviewed And Are Negative: Yes Physical Exam - Summary Physical Exam Summary: GENERAL: Patient is a well-developed and nourished F who is lying comfortable in the stretcher. Patient is not in any acute respiratory distress. HEAD AND FACE: Normocephalic EYES: PERRLA, EOMI x 2. EARS: Hearing grossly intact. MOUTH: Oropharynx within normal limits. NECK: Supple, trachea is midline, no adenopathy, no JVD, no carotid bruit. CHEST: Symmetric, no tenderness at palpation LUNGS: Clear to auscultation bilaterally. No wheezing or crackles. CVS: Regular rate and rhythm, S1 and S2 present, no murmurs or gallops appreciated. ABDOMEN: Soft, non-tender. Bowel sounds are normal. No abnormal abdominal pulsations. EXTREMITIES: Full ROM in all major joints, no edema, no cyanosis or clubbing. NEURO: Alert and oriented x 3. No acute neurological deficits. Speech is normal and follows commands. SKIN: Dry and warm, birthmark on lower right face extending to the ear Triage Information Reviewed: Yes Vital Signs On Initial Exam: Initial Vitals Temp Pulse Resp BP Pulse Ox 98.6 F 58 16 130/89 99 11/06/18 06:42 11/06/18 06:42 11/06/18 06:42 11/06/18 06:42 11/06/18 06:42 Vital Signs Reviewed: Yes Diagnostics - Vital Signs Vital Signs Temp Pulse Resp BP Pulse Ox 11/06/18 06:42 98.6 F 58 16 130/89 99 - Laboratory Lab Results: Lab Results 11/06/18 Range/Units 06:58 Urine Color Rosalia Urine Appearance Cloudy Urine pH 6.0 (5-9) Ur Specific [place] 1.012 (1.010-1.030) Urine Protein 1+(30 mg/dl) A (Negative) Urine Ketones Negative (Negative) Urine Blood 3+ A (Negative) Urine Nitrate Positive A (Negative) Urine Bilirubin Negative (Negative) Urine Urobilinogen Positive A (Negative) Ur Leukocyte Esterase 2+ A (Negative) Urine WBC (Auto) 3+(>20/hpf) A (Absent) Urine RBC (Auto) 3+(>10/hpf) A (Absent) Ur Squamous Epith Cells Present A (Absent) Urine Bacteria Absent (Absent) Urine Glucose Negative (Negative) Lab Statement: Any lab studies that have been ordered have been reviewed, and results considered in the medical decision making process. GIGU Course/Dx - Course Course Of Treatment: Pt is a 23 y/o female who presents to the ED c/o dysuria, urinary urgency, N/V, and diaphoresis. She has a hx of UTI and states these symptoms are similar. A physical exam revealed birthmark on lower right face extending to the ear. UA significant for protein, blood, nitrate, urobilinogen, leukocyte esterase. Final dx of UTI. Pt will be discharged with a prescription for Keflex. I discussed results with patient, and she reports feeling better. She is hemodynamically stable and safe for discharge. Strict return precautions given and/she will otherwise follow up with her PCP. - Diagnoses Provider Diagnoses: UTI (urinary tract infection) Discharge - Sign-Out/Discharge Documenting (check all that apply): Patient Departure - Discharge Patient Received Moderate/Deep Sedation with Procedure: No - Discharge Plan Condition: Good Disposition: HOME Prescriptions: Cephalexin CAP* [Keflex CAP*] 500 mg PO BID #14 cap Patient Education Materials: Urinary Tract Infection in Women (ED) Referrals: Mohit Lancaster MD [Primary Care Provider] - (1-3 days) Additional Instructions: RETURN TO THE ED WITH ANY NEW OR WORSENING SYMPTOMS. - Billing Disposition and Condition Condition: GOOD Disposition: Home - Attestation Statements Document Initiated by Scribe: Yes Documenting Scribe: Ciera Calderon Provider For Whom Scribe is Documenting (Include Credential): Tara Ren MD Scribe Attestation: Ciera Jackson, scribed for Tara Ren MD on 11/07/18 at 0719. Scribe Documentation Reviewed: Yes Provider Attestation: The documentation as recorded by the scribCiera breaux accurately reflects the service I personally performed and the decisions made by me, Tara Ren MD Status of Scribe Document: Viewed
--- OUTSIDE RECORDS SUMMARY | 2018-11-06 07:46 | XMS REPORT | Continuity of Care Document ---
:1995 Author Organization [facility] Address [address] [place], [place] [id number] Phone Care Team Providers Name Role Phone Debbie WEIGHER AND CRUSHER, Dvaid Unavailable Unavailable Allergies, Adverse Reactions, Alerts Substance Reaction Status No Known Allergies Active Medications Medication Instructions Dosage Effective Dates Status Comments (start - stop) Ortho-Cyclen (28) take 1 tablet by oral 1.00 tablet - Active 0.25 mg-35 mcg route every day tablet Problems Condition Effective Dates (start - Clinical Status Comments stop) Human immunodeficiency virus [HIV] - counseling Encntr screen for infections w sexl mode of transmiss Personal history of oth diseases of the female genital tract Encntr for cerv smear to cnfrm norm smr fol init abn smear Encntr screen for infections w sexl mode [...] Encounter for test, result negative 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 Other Dowel Inspector.Svc. STI Results Test Name Date and Time Measure Units Reference Range Abnormal Flag Status Comments Panel Description: C trach DNA XXX Ql PCR Final Swab CT - Negative N Final Performed Vaginal 00:00:00 by:
&emsp;&ensp;CDD ([id number])

Panel Description: Amplified GC - Vaginal Final Swab GC - Negative N Final : Vaginal 00:00:00 No

Performed by:
&emsp;&ensp;CDD ([id number])

Advance Directives Directive Yes / No Effective Date File Name No information Encounters Encounter Practice Location Reason(s) Diagnoses Date Provider Providers Description For Visit Copied on Encounter OFFICE/OUTPA [facility], [facility] [place] Person immunodeficiency 7-201 eliseo David. Provider: EST [facility] Visit virus [HIV] 9 [address] Sueane Finger (chief counselingEncntr [facility], Jenn [facility], 620 complaint) [place], [address]. emmer, [address] infections w tel:[phone], [place], [place] [address] [place], [place], transmissPersona [place], [id number], [place], [address]. [place] diseases of the tel: tel:+[phone] female genital [phone] tractEncntr for cerv smear to cnfrm norm smr fol init abn smear [facility] Encntr screen [place] Referring [facility] [place] for infections w Екатерина. [address] Provider: [place] sexl mode of [address], Екатерина Finger transmissEncount [place], [place], Addie [facility], 620 [place] [address]. s, [address] surveillance of tel: [address], St, [place], contraceptive [address] [place], [place], [place], [address]. [id number], for tel: [place] test, result [id number] tel: negativeEncounte 426437 r for oth general cnsl and advice on contraception [facility] Human Lisa Referring [facility] [place] immunodeficiency 2201 [place]. [address] Provider: [facility] virus [HIV] [address], [place] Finger counselingUrgenc [place], Lisa [facility], 620 [place] [address]. M, [address] urinationEncount tel: [address], St, [place] [address] [place], [place], [place], [address]. [id number], negativeDysuriaE tel: [place] ncntr screen for [id number] tel:72 infections w [phone] sexl mode of transmissEncount er for oth general cnsl and advice on contraceptionEnc ounter for surveillance of contraceptive pillsHematuria, unspecified [facility] Body mass index Javi Vazquez. [facility] [place] (BMI) 20.0-20.9, [address] [place] adultEncounter [address], [place], [place], [address], [facility], 620 test, result [place]. [address] negativeEncntr , [place], for communications clerk exam [place], (general) [id number], (routine) w/o [place] abn tel:+[phone] findingsEncounte 586535 r for oth screening for malignant neoplasm of breast [facility] Human Dec-0 [facility] Referring [facility] [place] immunodeficiency 6- Yi. [address] Provider: [place] virus [HIV] [address], Yi Finger counselingEncoun [place], [place], [address] [place] [address]. M, [address] test, tel:[phone], St, [place], result [address] [place], [place], [place], [address]. [id number], r for tel:+607 [place] prescription of [id number] tel:+[phone] emergency [phone] contraceptionEnc ounter for oth general cnsl and advice on contraceptionEnc ntr screen for infections w sexl mode of transmissUnspeci fied dyspareunia [facility] Encntr screen Guggino [facility] [place] for infections w Madelyn. [place] sexl mode of 7 [address] Finger transmissEncount , [place], [facility], 620 [place], [address], [address] surveillance of [place]. , [place], contraceptive tel:[phone] [place], pillsPostcoital [phone], and contact [place] bleeding tel:[phone] [facility] Encntr screen [place] [place] for dis of the eliseo Sueane. Southern bld/bld-form 6 [address] Finger org/immun St, [place], [facility], 620 [place], [address]. [address] screen for tel:[phone] [facility], [place] [address] [place], sexl mode of [id number], transmissOther [place] fatigue tel:[phone] [facility] Chlamydial Feb-0 [facility] [place] infection, 4-201 Jeannie. 620 [place] unspecified [address], [place], [place], [place], [address], [place]. [address] tel:+[phone] St, [place], [address] [place], [id number], [place] tel:[phone] [facility] Encntr screen Raphaelidis [facility] [place] for infections w 201 Екатерина. [address] [place] sexl mode of [address], Finger transmissUrgency [place], [place], [place], 620 [address]. [address] urinationEncount tel:[phone] St, [place], [place] [address] [place], prescription of [id number], contraceptive [place] pills tel:[phone] Family History Family Member Diagnosis Age At [...] information Payers Payer name Insurance type Covered constitution party ID Authorization(s) Oleg [facility] CI [id number] Social History Type Description Quantity Date Captured Comments Alcohol Use Details Unknown Caffeine Use Details Unknown Tobacco Use Status Unknown Smoking Status Never smoker Non-Smoking Tobacco : No Details Available : No Details Available 2018 Use Details Sex Female Vital Signs Date / Height Weight BMI Pulse Blood Temperature Respiratory Body Head BMI Pulse Inhaled Time: Rate Pressure Rate Surface Circumference percentile Ox Ox Area No information Chief Complaint And Reason For Visit Most recent encounter only, dated '10/18/2018 13:50'. Well Person Visit ( chief complaint) Reason For Referral Reason [...] No information Assessments Type Assessment Date assessment Human immunodeficiency virus [HIV] counseling assessment Encntr screen for infections w sexl mode of transmiss assessment Personal history of oth diseases of the female genital tract assessment Encntr for cerv smear to cnfrm norm smr fol init abn smear 2018 Goals Health Concern Goal Type Priority Status Date No information Medical Equipment Description Device Ashley Device Identifier Effective Dates (start - stop ) Status No information Mental Status Date Cognitive Assessment No information Health Concerns Observation Date No information Concern Status Date No information
--- OUTSIDE RECORDS SUMMARY | 2018-11-06 07:46 | XMS REPORT | Continuity of Care Document ---
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 Provider: [facility] virus [HIV] [address] Sueane Finger counselingEncntr [facility], [facility], [facility] [place], [address]. emmer, [address] infections w tel:+[phone], [place], [place] [address] , [place], transmissPersona [place], [id number], [place], [address]. [place] diseases of the tel:+60 tel:[phone] female genital [phone] tractEncntr for cerv smear to cnfrm norm smr fol init abn smear [facility] [place] 6- Екатерина. [address], Finger [place], [place], [facility], [facility] [address]. [address] tel:+[phone] St, [place], [address] [place], [id number], [place] tel:[phone] [facility] Encntr screen Raphaelidis Referring [facility] [place] for infections w 1 Екатерина. [address] Provider: [place] sexl mode of [address], Екатерина Finger transmissEncount [place], [place], Raphhilary [facility], [facility] [place] [address]. s, [address] surveillance of tel:[phone], St, [place], contraceptive [address] [place], [place], [place], [address]. [id number], for tel:+[phone] [place] test, result [id number] tel:+[phone] negativeEncounte 917844 r for oth general cnsl and advice on contraception [facility] May-0 Lisa Referring [facility] [place] immunodeficiency 2-201 [place]. [address] Provider: [place] virus [HIV] [address], [place] Finger counselingUrgenc [place], [place], Lisa [facility], 620 [place] [address]. M, [address] urinationEncount tel:[phone], St, [place] [address] [place], [place], [place], [place], [address]. [id number], negativeDysuriaE tel:+[phone] [place] ncntr screen for [id number] tel:+[phone] infections w 899367 sexl mode of transmissEncount er for oth general cnsl and advice on contraceptionEnc ounter for surveillance of contraceptive pillsHematuria, unspecified [facility] Body mass index Apr-1 [place]. [facility] [place] (BMI) 20.0-20.9, 6-201 [address] [place] adultEncounter [address], [place], [place], [address], [facility], 620 test, result [place]. [address] negativeEncntr , [place], for rn gynecology exam [place], (general) [id number], (routine) w/o [place] abn tel:+[phone] findingsEncounte 563167 r for oth screening for malignant neoplasm of breast [facility] Human Dec-0 [place] Referring Parenthood [place] immunodeficiency 6-201 Yi. [address] Provider: [place] virus [HIV] [address], Yi [place] counselingEncoun [place], [place], [place] [facility], [address] [place] [address]. M, [address] test, tel:[phone] [address], St, [place], result [address] [place], [place], [address]. [id number], r for tel:[phone] [place] prescription of [id number] tel: emergency [phone] contraceptionEnc ounter for oth general cnsl and advice on contraceptionEnc ntr screen for infections w sexl mode of transmissUnspeci fied dyspareunia [facility] Encntr screen Guggino [facility] [place] for infections w Madelyn. Southern sexl mode of 7 [address] Finger transmissEncount , [place], [facility], 620 [place], [address], [address] surveillance of [place]. St, [place], contraceptive tel: [place], pillsPostcoital [phone], and contact [place] bleeding tel: [phone] [facility] Encntr screen [place] [place] for dis of the eliseo Sueane. Southern bld/bld-form 6 [address] Finger org/immun , [place], [facility], 620 [place], [address]. [address] screen for tel: [facility], [place] [address] [place], sexl mode of [id number], transmissOther [place] fatigue tel: [phone] [facility] Chlamydial Feb- Borgl[facility] [place] infection, Jeannie. 620 [place] unspecified [address], [place], [place], [facility], 620 [address], [place]. [address] tel: [facility], [address] [place], [id number], [place] tel: [phone] [facility] Encntr screen Raphaelidis [facility] [place] for infections w Екатерина. [address] [place] sexl mode of [address], Finger transmissUrgency [place], [place], [facility], 620 [address]. [address] urinationEncount tel: [facility], [place] [address] [place], prescription of [id number], contraceptive [place] pills tel:+ [phone] Family History Family Member Diagnosis Age At [...] information Payers Payer name Insurance type Covered libertarian ID Authorization(s) Oleg HOOPER [facility] CI [id number] Social History Type Description Quantity Date Captured Comments Alcohol Use Details Unknown Caffeine Use Details Unknown Tobacco Use Status Unknown Smoking Status Never smoker Sex Female Vital Signs Date / Height Weight BMI Pulse Blood Temperature Respiratory Body Head BMI Pulse Inhaled Time: Rate Pressure Rate Surface Circumference percentile Ox Ox Area No information Chief Complaint And Reason For Visit No information Reason For Referral Reason For Referral No information Plan Of Treatment Date Type Action Status No information History Of Present Illness Encounter Date Complaint History Of Present Illness No information Functional Status Date Functional Assessment No information Medications Administered Medication Instructions Dosage Effective Dates (start - stop) Status Comments No information Instructions Date Instruction Additional Information No information Assessments Type Assessment Date No information Goals Health Concern Goal Type Priority Status Date No information Medical Equipment Description Device Carney Device Identifier Effective Dates (start - stop ) Status No information Mental Status Date Cognitive Assessment No information Health Concerns Observation Date No information Concern Status Date No information
--- OUTSIDE RECORDS SUMMARY | 2018-11-06 07:46 | XMS REPORT | Continuity of Care Document ---
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 Southern 9 [address] Finger [facility], 620 [place], [address]. [address] tel:+7 [facility], [address] [place], [id number], [place] tel:+ [phone] [facility] Human [place] [facility] immunodeficiency eliseo Sueane. Provider: [facility] virus [HIV] 9 [address] Sueane Finger counselingEncntr [facility], [facility], [facility] [place], [address]. emmer, [address] infections w tel:+[phone] [address] [facility], [place] [address] [place], [place], transmissPersona [place], [id number], [place], [address]. [place] diseases of the tel:+ tel:+[phone] female genital [phone] 906164 tractEncntr for cerv smear to cnfrm norm smr fol init abn smear [facility] Encntr screen [place] [facility] for infections w Екатерина. [address] Provider: [facility] sexl mode of [address], Екатерина Finger transmissEncount [place], [place], [place] [facility], [facility] [place] [address]. s, [address] surveillance of tel:[phone] [address], St, [place], contraceptive [address] [place], [place], [place], [address]. [id number], for tel:[phone] [place] test, result 9290036 tel:+[phone] negativeEncounte 146144 r for oth general cnsl and advice on contraception [facility] Human May-0 Lisa Referring [facility] [place] immunodeficiency 2-201 [place]. [address] Provider: [place] virus [HIV] [address], [place] Finger counselingUrgenc [place], Lisa [facility], 620 [place] [address]. M, [address] urinationEncount tel:+[phone], St, [place] [address] [place], [place], [place], [address]. [id number], negativeDysuriaE tel:[phone] [place] ncntr screen for [id number] tel:+[phone] infections w 114693 sexl mode of transmissEncount er for oth general cnsl and advice on contraceptionEnc ounter for surveillance of contraceptive pillsHematuria, unspecified [facility] Body mass index Apr-1 [place]. [facility] [place] (BMI) 20.0-20.9, 6-201 [address] [place] adultEncounter [address], [place], [place], [address], [facility], 620 test, result [place]. [address] negativeEncntr [facility], for medical assistant ob gyn exam [place], (general) [id number], (routine) w/o [place] abn tel:+[phone] findingsEncounte 264790 r for oth screening for malignant neoplasm of breast [facility] Human Dec-0 [place] Referring [facility] [place] immunodeficiency 6-201 Yi. [address] Provider: [place] virus [HIV] [address], Yi Finger counselingEncoun [place], [place] [facility], [address] [place] for [address]. M, [address] test, tel:[phone] [address], St, [place], result [address] [place], [place], [place], [address]. [id number], r for tel:[phone] [place] prescription of [id number] tel:72 emergency [phone] contraceptionEnc ounter for oth general cnsl and advice on contraceptionEnc ntr screen for infections w sexl mode of transmissUnspeci fied dyspareunia [facility] Encntr screen Guggino [facility] [place] for infections w Madelyn. Southern sexl mode of 7 [address] [place]inger transmissEncount , [place], [facility], 620 [place], [address], [address] surveillance of [place]. St, [place], contraceptive tel:+7 [place], pillsPostcoital [phone], and contact [place] bleeding tel:+ [phone] [facility] Encntr screen [place] [facility] [place] for dis of the eliseo Sueane. Southern bld/bld-form 6 [address] Finger org/immun , [place], [facility], 620 [place], [address]. [address] screen for tel:+ [facility], [place] [address] [place], sexl mode of [id number], transmissOther [place] fatigue tel: [phone] [facility] Chlamydial Feb- [place] [place] infection, Jeannie. 620 [place] unspecified [address], [place], [place], [facility], 620 [address], [place]. [address] tel: [facility], [address] [place], [id number], [place] tel:+ [phone] [facility] Encntr screen Raphaelidis [facility] [place] for infections w Екатерина. [address] [place] sexl mode of [address], [place] transmissUrgency [place], [place], [facility], 620 of [address]. [address] urinationEncount tel:+ [facility], [place] [address] [place], prescription of [id number], contraceptive [place] pills tel:[phone] Family History Family Member Diagnosis Age At [...] information Payers Payer name Insurance type Covered alliance party ID Authorization(s) Oleg HOOPER [facility] CI [id number] Social History Type Description Quantity Date Captured [...] Date No information Medical Equipment Description Device [place] Device Identifier Effective Dates (start - stop ) Status No information Mental Status Date Cognitive Assessment No information Health Concerns Observation Date No information Concern Status Date No information
[2018-11-06] MEDS ORDERED: Cephalexin CAP* 500 MG PO ONE (07:50)
[2018-11-06] MEDS ORDERED: oxyCODONE/Acetamin 5/325 MG* TAB PO ONE (07:52)
[2018-11-06 08:01] VITALS: BP 115/58
--- NOTE | 2018-11-08 06:52 | PN ---
Progress Note - Progress Note Date of Service: 11/06/18 Note: Pt. seen 11/06 and started on keflex for UTI. Culture today growing >100k e. coli susceptible to keflex. No change in treatment needed at this time.
== END 2018-11-06 08:00 | disposition home or self-care (01) ==
LOC: ED 06:37
DX: N39.0 Urinary tract infection, site not specified (principal); F41.9 Anxiety disorder, unspecified
CPT/HCPCS: 81003; 81015; 87077; 87086; 87186; 99282; A9270-GY

== ENCOUNTER 2018-12-30 15:52 | Emergency (ER) | payer OTHER ==
--- OUTSIDE RECORDS SUMMARY | 2018-12-30 16:49 | XMS REPORT | Continuity of Care Document ---
:[address] [facility] Address [address], [place] [id number] Phone Care Team Providers Name Role Phone Taylor Caldwell NP Unavailable Unavailable Allergies, Adverse Reactions, Alerts Substance Reaction Status No Known Allergies Active Medications Medication Instructions Dosage Effective Dates Status Comments (start - stop) Ortho-Cyclen (28) take 1 tablet by 1.00 tablet - Active 0.25 mg-35 mcg oral route every tablet day ZOFRAN (unknown Not Available - Active strength) Problems Condition Effective Dates (start - Clinical Status Comments stop) Urgency of urination Encounter for initial prescription of contraceptive pills Adverse effect of oral contraceptives, sequela Dysuria Encounter for test, result negative Human immunodeficiency virus [HIV] - counseling Encntr [...] Encounter for test, result negative 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 STI Results Test Name Date and Time Measure Units Reference Range Abnormal Flag Status Comments Panel Description: High Sensitivity Urine Test Final High Sensitivity Urine 12:29:04 NegativeInternal Quality Final Test Control: Positive Panel Description: Urine Dipstick Final Urine Dipstick 12:02:15 Color: dark yellowGlucose: Final negativeKetones: negativeProtein: traceNitrite: negativeLeukocytes: smallBlood: trace non-hemolyzedpH: 6.5 Advance Directives Directive Yes / No Effective Date File Name No information Encounters Encounter Practice Location Reason(s) Diagnoses Date Provider Providers Description For Visit Copied on Encounter OFFICE/OUTPA [facility] Urgency of Javi Vazquez. Referring TIENT VISIT, [facility] [place] Symptoms urinationEncount 2-201 [address] [place] Provider: MAX Virk (chief er for initial 9 St, [place], [place]) [place], [address], [place], [address] [place], 620 contraceptive [place]. W [place] W [place] pillsAdverse St, St, [place], effect [place], [place], [place], [address]. [id number], sequelaDysuriaEn [place] counter for tel:[phone] test, [id number] result negative [facility] Human Apr-1 [place] Referring [facility] [place] immunodeficiency 7-201 eliseo Sueane. Provider: [place] virus [HIV] 9 [address] [place] Sueane Finger counselingEncntr St, [place], [place], [address] [place], [address]. emmer, [address] [place] infections w tel:[phone] [address] [place] [address], [place] [address] [place], [place], transmissPersona [place], [id number], [place], [address]. [place] diseases of the tel:+60 tel:[phone] female genital [phone] [id number] tractEncntr for cerv smear to cnfrm norm smr fol init abn smear [facility] Encntr screen Raphaelj luis Referring [facility] [place] for infections w 1 [place]ат[place]. [address] Provider: [place] sexl mode of [address], [place]ат[place] Finger transmissEncount [place], [place], Raphaelidi [facility], [address] [place] [address]. s, [address] [place] surveillance of tel:[phone] [place] St, St, [place], contraceptive [address] [place], [place], [place], [address]. [id number], for tel:+[phone] [place] test, result [id number] tel:+[phone] negativeEncounte [phone] r for oth general cnsl and advice on contraception [facility] Human May-0 Lisa Referring [facility] [place] immunodeficiency 2-201 [place]. [address] Provider: [place] virus [HIV] [address] [place], [place] counselingUrgenc [place], [place], Lisa [facility], 620 [place] [address]. M, [address] [place] urinationEncount tel:[phone] [place] [address], [place], [place] [address] [place], [place], [address]. [id number], negativeDysuriaE tel:[phone] [place] ncntr screen for [id number] tel:+[phone] infections w [phone] sexl mode of transmissEncount er for oth general cnsl and advice on contraceptionEnc ounter for surveillance of contraceptive pillsHematuria, unspecified [facility] Body mass index Apr- [place]. [facility] [place] (BMI) 20.0-20.9, 6 [address] [place] Southern adultEncounter [address], [place], [place], [address], [facility], 620 test, result [place]. W [place] negativeEncntr [facility], for mortgage coordinator exam [place], (general) [id number], (routine) w/o [place] abn tel:[phone] findingsEncounte [phone] r for oth screening for malignant neoplasm of breast [facility] Dec-[facility] Referring [facility] [place] immunodeficiency Yi. [address] Provider: [facility] virus [HIV] [address] [place], Yi Finger counselingEncoun [place], [place], [place] [facility], [address] [place] [address]. M, [address] [place] test, tel:[phone] [place] [address], [facility], result [address] [place], [place], [place], [address]. [id number], r for tel:[phone] [place] prescription of [id number] tel:[phone] emergency [phone] contraceptionEnc ounter for oth general cnsl and advice on contraceptionEnc ntr screen for infections w sexl mode of transmissUnspeci fied dyspareunia [facility] Encntr screen Oct- Guggino [facility] [place] for infections w Madelyn. [place] sexl mode of 7 [address] [place] Finger transmissEncount , [place], [facility], [address] [place], [address], [address] [place] surveillance of [place]. [facility], contraceptive tel:[phone] [place], pillsPostcoital [phone], and contact [place] bleeding tel:[phone] [facility] Encntr screen [place] [facility] [place] for dis of the eliseo Sueane. [facility] bld/bld-form 6 [address] [place] Finger org/immun , [place], [facility], 620 [place], [address]. W [place] screen for tel:[phone] St, [place], [place] [address] [place], sexl mode of [id number], transmissOther [place] fatigue tel: [phone] [facility] Chlamydial Feb-0 Borglum [facility] [place] infection, 4[address] Jeannie. [address] [place] unspecified [address] [place] [address], [place], [place], [place], 620 [address], [place]. W [place] tel:727 St, [place], [address] [place], [id number], [place] tel:[phone] [facility] Encntr screen Aug-0 Raphaelidis [facility] [place] for infections w 1-201 [place]. [address] [place] sexl mode of [address] [place] [place], Finger transmissUrgency [place], [place], [facility], 620 [address]. [address] [place] urinationEncount tel: [facility], er for initial [address] [place], prescription of [id number], contraceptive [place] pills tel: [phone] Family History Family Member Diagnosis Age At [...] type Covered constitution party ID Authorization(s) Oleg HOOPER [facility] CI [id number] Social History Type Description Quantity Date Captured Comments Alcohol Use Details Unknown Caffeine Use Details Unknown Tobacco Use Status Unknown Smoking Status Never smoker Sex Female Vital Signs Date / Height Weight BMI Pulse Blood Temperature Respiratory Body Head BMI Pulse Inhaled Time: Rate Pressure Rate Surface Circumference percentile Ox Ox Area 110/80 97.50 mm[Hg] 11:58 AM Chief Complaint And Reason For Visit Most recent encounter only, dated '12/13/2018 11:20'. Urinary Symptoms ( chief complaint) Reason For Referral Reason [...] No information Assessments Type Assessment Date assessment Urgency of urination assessment Encounter for initial prescription of contraceptive pills 2018 assessment Adverse effect of oral contraceptives, sequela assessment Dysuria assessment Encounter for test, result negative Goals Health Concern Goal Type Priority Status Date No information Medical Equipment Description Device [place] Device Identifier Effective Dates (start - stop ) Status No information Mental Status Date Cognitive Assessment No information Health Concerns Observation Date No information Concern Status Date No information
--- OUTSIDE RECORDS SUMMARY | 2018-12-30 16:49 | XMS REPORT | Continuity of Care Document ---
:1995 Author Organization [facility] Address [address], [place] [phone] Phone Care Team Providers Name Role Phone Hermila Barrear NP Unavailable Unavailable Allergies, Adverse Reactions, Alerts Substance Reaction Status No Known Allergies Active Medications Medication Instructions Dosage Effective Dates Status Comments (start - stop) ampicillin 500 mg take 1 capsule by 500 MG - Active capsule oral route every 6 hours 1/2 hour before a meal or 2 hours after a meal Ortho-Cyclen (28) take 1 tablet by 1.00 [...] Encounter for test, result negative 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 [address], [place], [place], [facility], [address] [address]. [address] [place] tel:[phone] [facility], [address] [place], [id number], [place] tel:[phone] [facility] Urgency of [place]. Referring [facility] [place] urinationEncount [address] [place] Provider: [facility] er for initial 9 St, [place], [place], [address], [place], [address] [place], 620 contraceptive [place]. W [place] pillsAdverse , [facility], effect of oral [place], [place], [place], [address]. [id number], sequelaDysuriaEn [place] counter for tel:[phone] test, [id number] result negative [facility] Human Irene-Danish [facility] immunodeficiency eliseo Sueane. Provider: [facility] virus [HIV] 9 [address] Sueane Finger counselingEncntr [facility], [address] [place], [address]. emmer, [address] [place] infections w tel:[phone], [place], [place] [address] [place], [place], transmissPersona [place], [id number], [place], [address]. [place] diseases of the tel:+60 tel:[phone] female genital [phone] [id number] tractEncntr for cerv smear to cnfrm norm smr fol init abn smear [facility] Encntr screen [place] Referring [facility] [place] for infections w 1 Екатерина. [address] Provider: [place] sexl mode of [address], [place]атер[place] Finger transmissEncount [place], [place], [place] [facility], 620 [place] [address]. s, [address] [place] surveillance of tel:[phone], St, [place], contraceptive [address] [place], [place], [place], [address]. [id number], for tel:+60 [place] test, result [id number] tel:[phone] negativeEncounte [phone] r for oth general cnsl and advice on contraception [facility] Human November- Lisa Referring [facility] [place] immunodeficiency [place]. [address] W Provider: [place] virus [HIV] [address], [place] Finger counselingUrgenc [place], [place], Lisa [facility], [address] [place] [address]. M, [address] urinationEncount tel:[phone], [place], [place] [address] [place], [place], [place], [address]. [id number], negativeDysuriaE tel:[phone] [place] ncntr screen for [id number] tel:[phone] infections w [phone] sexl mode of transmissEncount er for oth general cnsl and advice on contraceptionEnc ounter for surveillance of contraceptive pillsHematuria, unspecified [facility] Body mass index Apr- Javi Vazquez. [facility] [place] (BMI) 20.0-20.9, 6- [address] [place] adultEncounter [address], [place], [place], [address], [facility], 620 test, result [place]. W [place] negativeEncntr , [place], for pot liner exam [place], (general) [id number], (routine) w/o [place] abn tel:[phone] findingsEncounte [phone] r for oth screening for malignant neoplasm of breast [facility] Dec-[facility] Referring [facility] [place] immunodeficiency 6- Yi. 620 W Provider: [facility] virus [HIV] [address], Yi Finger counselingEncoun [place], [place], [place] [facility], [address] [place] [address]. M, [address] [place] test, tel:[phone], St, [place], result [address] [place], [place], [place], [address]. [id number], r for tel:+[phone] [place] prescription of [id number] tel:[phone] emergency [phone] contraceptionEnc ounter for oth general cnsl and advice on contraceptionEnc ntr screen for infections w sexl mode of transmissUnspeci fied dyspareunia [facility] Encntr screen Guggino [facility] [place] for infections w Madelyn. [place] sexl mode of 7 [address] [place] transmissEncount , [place], [facility], [address] [place], [address], [address] surveillance of [place]. , [place], contraceptive tel:+[phone] [place], pillsPostcoital [phone], and contact [place] bleeding tel:+ [phone] [facility] Encntr screen [place] [facility] [place] for dis of the eliseo Sueane. Southern bld/bld-form 6 [address] Finger org/immun St, [place], [facility], [address] [place], [address]. [address] screen for tel:[phone] [facility], [place] [address] [place], sexl mode of [id number], transmissOther [place] fatigue tel:[phone] [facility] Chlamydial Feb-0 Borglum [facility] [place] infection, [address]. [address] [place] unspecified [address], [place], [place], [place], [address], [place]. [address] [place] tel:+7 , [place], [address] [place], [id number], [place] tel:[phone] [facility] Encntr screen Raphharmanidis [facility] [place] for infections w Екатерина. [address] [place] sexl mode of [address], Finger transmissUrgency [place], [place], [facility], [address]. [address] urinationEncount tel:+ [facility], [place] [address] [place], prescription of [id number], contraceptive [place] pills tel:[phone] Family History Family Member Diagnosis Age At [...] party ID Authorization(s) Oleg HOOPER [facility] CI [id number] Social History Type Description Quantity Date Captured [...] Date No information Medical Equipment Description Device [place] Device Identifier Effective Dates (start - stop ) Status No information Mental Status Date Cognitive Assessment No information Health Concerns Observation Date No information Concern Status Date No information
[2018-12-30 17:32] LABS: Urine Appearance Cloudy; Urine Bacteria Absent (Absent); Urine Bilirubin Negative (Negative); Urine Blood 2+ (Negative); Urine Color Amber; Urine Glucose Negative (Negative); Urine Ketones 1+ (Negative); Urine Nitrite Negative (Negative); Urine Protein 1+(30 mg/dL) (Negative); Urine Red Blood Cell 2+(6-10/hpf) (Absent); Urine Specific Gravity 1.032 (1.010-1.030); Urine Squamous Epithelial Cell Present (Absent); Urine Urobilinogen Negative (Negative); Urine White Blood Cell 2+(11-20/hpf) (Absent)
[2018-12-30] MEDS ORDERED: Sulfamethox/Trimethoprim DS 800/160* TAB PO ONE (20:05)
[2018-12-30] MEDS ORDERED: Phenazopyridine TAB* 100 MG PO ONE (20:08)
--- NOTE | 2018-12-30 20:09 | ED ---
GI/ HPI - HPI Summary HPI Summary: Patient complains of burning with urination, increased urinary frequency, decreased urinary output 1 month despite 2 courses of antibiotics including Keflex and ampicillin. Also complains of left lower back pain which is intermittent, and radiates to abdomen. Denies fever, cough, sore throat, CP, N/ V/D, change in BM, vaginal symptoms. Medical history as gastroparesis. Abdominal surgical history is none. Positive OCP. Sexually active. - History of Current Complaint Chief Complaint: EDUrogenitalProblems Time Seen by Provider: 12/30/18 18:49 Stated Complaint: UTI PAIN PER PT Hx Obtained From: Patient Hx Last Menstrual Period: 2 weeks ago Onset/Duration: Started Weeks Ago Timing: Intermittent Severity: Moderate Current Severity: Moderate Pain Intensity: 6 Location of Pain: LLQ Pain Characteristics: Cramping Pain Radiates to: Back - Allergy/Home Medications Allergies/Adverse Reactions: Allergies Allergy/AdvReac Type Severity Reaction Status Date / Time No Known Allergies Allergy Verified 11/06/18 06:43 Home Medications: Home Medications Norgestimate-Ethinyl Estradiol [Samanta 0.25-0.035 mg Tablet] 1 tab PO DAILY [History Confirmed 12/30/18] PMH/Surg Hx/FS Hx/Imm Hx Endocrine/Hematology History: Denies: Hx Diabetes, Hx Thyroid Disease Cardiovascular History: Denies: Hx Hypertension Respiratory History: Denies: Hx Asthma, Hx Chronic Obstructive Pulmonary Disease (COPD) GI History: Denies: Hx Ulcer History: Reports: Other Problems/Disorders - UTI Sensory History: Denies: Hx Eye Prosthesis Opthamlomology History: Denies: Hx Legally Blind EENT History: Denies: Hx Deafness Neurological History: Denies: Hx Dementia Psychiatric History: Reports: Hx Anxiety - years hx , no treatment - Cancer History Hx Radiation Therapy: No Hx Palliative Cancer Treatment: No - Surgical History Surgery Procedure, Year, and Place: LASER SURGERY FOR REMOVAL OF [place] Infectious Disease History: No Infectious Disease History: Denies: Hx Clostridium Difficile, Hx Hepatitis, Hx Human Immunodeficiency Virus (HIV), Hx of Known/Suspected MRSA, Hx Shingles, Hx Tuberculosis, Hx Known/ Suspected VRE, Hx Known/Suspected VRSA, History Other Infectious Disease, Traveled Outside the [place] in Last 30 Days - Family History Known Family History: Positive: Hypertension - Social History Alcohol Use: Weekly Hx Substance Use: No Substance Use Type: Reports: None Hx Tobacco Use: No Smoking Status (MU): Never Smoked Tobacco Review of Systems Constitutional: Negative Eyes: Negative ENT: Negative Cardiovascular: Negative Respiratory: Negative Positive: Abdominal Pain Positive: burning, urgency Musculoskeletal: Negative Skin: Negative Neurological: Negative Psychological: Normal All Other Systems Reviewed And Are Negative: Yes Physical Exam - Summary Physical Exam Summary: Abdomen soft nontender. No CVA tenderness bilaterally. Mild tenderness to palpation of lumbar left paraspinal muscles. Pelvic exam unremarkable. Triage Information Reviewed: Yes Vital Signs On Initial Exam: Initial Vitals Temp Pulse Resp BP Pulse Ox 98.4 F 96 18 119/87 99 12/30/18 16:05 12/30/18 16:05 12/30/18 16:05 12/30/18 16:05 12/30/18 16:05 Vital Signs Reviewed: Yes Appearance: Positive: Well-Appearing Skin: Positive: Warm Head/Face: Positive: Normal Head/Face Inspection Eyes: Positive: Normal Neck: Positive: Supple Respiratory/Lung Sounds: Positive: Clear to Auscultation Cardiovascular: Positive: Normal Abdomen Description: Positive: Nontender Pelvic Exam: Positive: External Exam Normal, Speculum Exam Normal, Bimanual Exam Normal Musculoskeletal: Positive: Normal Neurological: Positive: Normal Psychiatric: Positive: Normal AVPU Assessment: Alert - [place] Coma Scale Best Eye Response: 4 - Spontaneous Best Motor Response: 6 - Obeys Commands Best Verbal Response: 5 - Oriented Coma Scale Total: 15 Diagnostics - Vital Signs Vital Signs Temp Pulse Resp BP Pulse Ox 12/30/18 17:55 98.1 F 71 18 124/63 99 12/30/18 16:05 98.4 F 96 18 119/87 99 - Laboratory Lab Results: Lab Results 12/30/18 Range/Units 16:13 Urine Color Rosalia Urine Appearance Cloudy Urine pH 5.0 (5-9) Ur Specific [place] 1.032 H (1.010-1.030) Urine Protein 1+(30 mg/dl) A (Negative) Urine Ketones 1+ A (Negative) Urine Blood 2+ A (Negative) Urine Nitrate Negative (Negative) Urine Bilirubin Negative (Negative) Urine Urobilinogen Negative (Negative) Ur Leukocyte Esterase 1+ A (Negative) Urine WBC (Auto) 2+(11-20/hpf) A (Absent) Urine RBC (Auto) 2+(6-10/hpf) A (Absent) Ur Squamous Epith Cells Present A (Absent) Urine Bacteria Absent (Absent) Urine Glucose Negative (Negative) Lab Statement: Any lab studies that have been ordered have been reviewed, and results considered in the medical decision making process. GIGU Course/Dx - Course Course Of Treatment: Patient complains of burning with urination, increased urinary frequency, decreased urinary output 1 month despite 2 courses of antibiotics including Keflex and ampicillin. Also complains of left lower back pain which is intermittent, and radiates to abdomen. Denies fever, cough, sore throat, CP, N/V/D, change in BM, vaginal symptoms. Medical history as gastroparesis. Abdominal surgical history is none. Positive OCP. Sexually active. Vital signs within normal limits. UA positive for UTI. Pelvic swabs pending. Patient will be advised if positive. Rx for Bactrim for UTI. Rx for Pyridium. - Diagnoses Provider Diagnoses: UTI (urinary tract infection) Discharge - Sign-Out/Discharge Documenting (check all that apply): Patient Departure Patient Received Moderate/Deep Sedation with Procedure: No - Discharge Plan Condition: Stable Disposition: HOME Prescriptions: Phenazopyridine 200 mg (NF) [Pyridium 200 MG tab *] 200 mg PO TID 2 Days #5 tab Sulfamethox/Trimethoprim DS* [Bactrim DS 800/160 TAB*] 1 tab PO BID 10 Days #20 tab Patient Education Materials: Urinary Tract Infection in Women (ED) Referrals: Mohit Lancaster MD [Primary Care Provider] - Jarod Ortega MD [Medical Doctor] - Additional Instructions: Take antibiotics as directed. You will be called if the pelvic swabs come back positive for any infection and treatment will be forwarded to your pharmacy. If symptoms persist despite treatment follow-up with urology Dr. Ortega for further evaluation. - Billing Disposition and Condition Condition: STABLE Disposition: Home
[2018-12-30 20:41] VITALS: BP 120/77
[2019-01-01 13:49] LABS: Trichomonas vaginalis Result Negative (Negative)
[2019-01-01 14:24] LABS: Neisseria gonorrhoeae (GC) RNA Negative (Negative)
--- NOTE | 2019-01-01 17:08 | PN ---
Progress Note - Progress Note Date of Service: 12/30/18 Note: Patient called at 5 PM on 01/01/19 to make aware results. 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
== END 2018-12-30 20:40 | disposition home or self-care (01) ==
LOC: ED 15:52
DX: N39.0 Urinary tract infection, site not specified (principal)
CPT/HCPCS: 81003; 81015; 87077; 87086; 87186; 87480; 87491; 87510; 87591; 87661; 99283; A9270-GY

== ENCOUNTER 2019-03-04 03:12 | Emergency (ER) | payer OTHER ==
--- NOTE | 2019-03-04 03:56 | ED ---
GI/ HPI - HPI Summary HPI Summary: Pt is a 23 y/o F presenting to the ED with a chief complaint of urinary sx. She states she has had multiple UTIs in the past 2 months, and she had a yeast infection as of last week. She has taken multiple rounds of abx, but they have not worked. This episode is characterized by hematuria initially noticed at 1600 on 03/03/19, which is abnormal, urgency, dysuria, frequency, slight nausea, and decreased appetite. She denies abd pain. - History of Current Complaint Chief Complaint: EDUrogenitalProblems Time Seen by Provider: 03/04/19 03:48 Stated Complaint: POSS UTI PER PT Hx Obtained From: Patient Hx Last Menstrual Period: 2 weeks ago Onset/Duration: Started Hours Ago, Still Present Timing: Constant, Lasting Hours Severity: Moderate Current Severity: Moderate Pain Intensity: 7 Associated Signs and Symptoms: Positive: Nausea, Hematuria, Dysuria, Change in Appetite - decreased, UTI Symptoms. Negative: Abdominal Pain Additional Signs & Symptoms: Positive: Recent Antibiotics Aggravating Factor(s): Urination Alleviating Factor(s): Nothing - Allergy/Home Medications Allergies/Adverse Reactions: Allergies Allergy/AdvReac Type Severity Reaction Status Date / Time No Known Allergies Allergy Verified 03/04/19 03:17 PMH/Surg Hx/FS Hx/Imm Hx Previously Healthy: Yes Endocrine/Hematology History: Denies: Hx Diabetes, Hx Thyroid Disease Cardiovascular History: Denies: Hx Hypertension Respiratory History: Denies: Hx Asthma, Hx Chronic Obstructive Pulmonary Disease (COPD) GI History: Denies: Hx Ulcer History: Reports: Other Problems/Disorders - UTI Sensory History: Denies: Hx Eye Prosthesis, Hx Legally Blind, Hx Deafness Opthamlomology History: Denies: Hx Eye Prosthesis, Hx Legally Blind Neurological History: Denies: Hx Dementia Psychiatric History: Reports: Hx Anxiety - years hx , no treatment - Cancer History Hx Radiation Therapy: No Hx Palliative Cancer Treatment: No - Surgical History Surgery Procedure, Year, and Place: LASER SURGERY FOR REMOVAL OF [place] Infectious Disease History: No Infectious Disease History: Denies: Hx Clostridium Difficile, Hx Hepatitis, Hx Human Immunodeficiency Virus (HIV), Hx of Known/Suspected MRSA, Hx Shingles, Hx Tuberculosis, Hx Known/ Suspected VRE, Hx Known/Suspected VRSA, History Other Infectious Disease, Traveled Outside the [place] in Last 30 Days - Family History Known Family History: Positive: Hypertension - Social History Alcohol Use: Weekly Hx Substance Use: No Substance Use Type: Reports: None Hx Tobacco Use: No Smoking Status (MU): Never Smoked Tobacco Review of Systems Positive: Other - decreased appetite Positive: Nausea. Negative: Abdominal Pain Positive: dysuria, frequency, hematuria, urgency All Other Systems Reviewed And Are Negative: Yes Physical Exam - Summary Physical Exam Summary: Appearance: Well-appearing, Well-nourished, lying in bed comfortable Skin: Warm, dry, no obvious rash Eyes: sclera anicteric, no conjunctival pallor ENT: mucous membranes moist Neck: deferred Respiratory: No signs of respiratory distress Cardiovascular: Appears well perfused, pulses are nml Abdomen: deferred Musculoskeletal: Moving all 4 extremities without obvious discomfort Neurological: Awake and alert, mentation is normal, speech is fluent and appropriate Psychiatric: affect is normal, does not appear anxious or depressed Triage Information Reviewed: Yes Vital Signs On Initial Exam: Initial Vitals Temp Pulse Resp BP Pulse Ox 98.5 F 68 16 134/86 100 03/04/19 03:14 03/04/19 03:14 03/04/19 03:14 03/04/19 03:14 03/04/19 03:14 Vital Signs Reviewed: Yes Diagnostics - Vital Signs Vital Signs Temp Pulse Resp BP Pulse Ox 03/04/19 03:14 98.5 F 68 16 134/86 100 - Laboratory Lab Statement: Any lab studies that have been ordered have been reviewed, and results considered in the medical decision making process. GIGU Course/Dx - Course Course Of Treatment: Pt is a 23 y/o F presenting to the ED with a chief complaint of urinary sx. She states she has had multiple UTIs in the past 2 months, and she had a yeast infection as of last week. This episode is characterized by hematuria initially noticed at 1600 on 03/03/19, which is abnormal, urgency, dysuria, frequency, slight nausea, and decreased appetite. She denies abd pain. Pt's physical exam is nml. Her urinalysis is indicative of a UTI. She will be d/c'ed with dx of UTI. She is stable and agreeable with this plan. - Diagnoses Provider Diagnoses: UTI (urinary tract infection) Discharge ED - Sign-Out/Discharge Documenting (check all that apply): Patient Departure Patient Received Moderate/Deep Sedation with Procedure: No - Discharge Plan Condition: Good Disposition: HOME Prescriptions: Cephalexin CAP* [Keflex CAP*] 500 mg PO QID #40 cap Phenazopyridine 200 mg (NF) [Pyridium 200 MG tab *] 200 mg PO TID #6 tab Patient Education Materials: Urinary Tract Infection in Women (ED) Referrals: Jarod Ortega MD [Medical Doctor] - Additional Instructions: With the frequency of your bladder infections, I think you should see a urologist as there could be a problem in the bladder leading to these. For tonight I am prescribing a different antibiotic for a ten day course. - Billing Disposition and Condition Condition: GOOD Disposition: Home - Attestation Statements Document Initiated by Marciaibsaeid: Yes Documenting Scribe: Esther Goodman Provider For Whom Edwardo is Documenting (Include Credential): Lyle Dasilva MD. Scribe Attestation: Esther Jackson, scribed for Lyle Dasilva MD. on 03/05/19 at 0512. Scribe Documentation Reviewed: Yes Provider Attestation: The documentation as recorded by the scribe, Esther Goodman accurately reflects the service I personally performed and the decisions made by me, Lyle Dasilva MD. Status of Scribe Document: Viewed
[2019-03-04 04:33] LABS: Urine Appearance Cloudy; Urine Bacteria Absent (Absent); Urine Bilirubin Negative (Negative); Urine Blood 3+ (Negative); Urine Color Amber; Urine Glucose Negative (Negative); Urine Ketones Trace (Negative); Urine Nitrite Positive (Negative); Urine Protein 1+(30 mg/dL) (Negative); Urine Red Blood Cell 3+(>10/hpf) (Absent); Urine Specific Gravity 1.013 (1.010-1.030); Urine Squamous Epithelial Cell Present (Absent); Urine Urobilinogen Negative (Negative); Urine White Blood Cell 3+(>20/hpf) (Absent)
[2019-03-04] MEDS ORDERED: Cephalexin CAP* 500 MG PO ONE (04:49)
[2019-03-04] MEDS ORDERED: Phenazopyridine TAB* 100 MG PO ONE (04:51)
[2019-03-04 05:07] VITALS: BP 131/67
== END 2019-03-04 05:13 | disposition home or self-care (01) ==
LOC: ED 03:12
DX: M79.10 Myalgia, unspecified site (principal); R51 Headache; R53.83 Other fatigue; F17.210 Nicotine dependence, cigarettes, uncomplicated
CPT/HCPCS: 81003; 81015; 87077; 87086; 87186; 99282; A9270-GY